=== PATIENT | female | born 1945 | race Caucasian/White ===

== ENCOUNTER → 2019-10-11 | Outpatient (CLI) | payer OTHER ==
[~2019-10-11] MED LIST: ADULT LOW DOSE81 MG PO; CIDATRINE500 MG; LIPITOR; LOPRESSOR 50 MG50 M1 PO; MOBIC
== END ==
LOC: SJCVC 13:33
PROVIDERS: ATTEND Internal Medicine
DX: I25.810 Atherosclerosis of coronary artery bypass graft(s) without angina pectoris (principal); I10 Essential (primary) hypertension; E78.2 Mixed hyperlipidemia; I65.23 Occlusion and stenosis of bilateral carotid arteries; C92.11 Chronic myeloid leukemia, BCR/ABL-positive, in remission; E78.00 Pure hypercholesterolemia, unspecified; Z95.1 Presence of aortocoronary bypass graft; Z79.82 Long term (current) use of aspirin; Z79.899 Other long term (current) drug therapy

== ENCOUNTER 2019-11-05 14:11 | Inpatient (IN) | payer OTHER ==
[~2019-11-05] VITALS: Ht 147.3 cm; Wt 38.1 kg
[~2019-11-05 14:11] MED LIST changes: -LOPRESSOR 50 MG50 M1 PO; +LOPRESSOR50 PO; +MACROBID 100 M100 MG PO
[2019-11-05 14:18] VITALS: BP 187/92
[2019-11-05] MEDS ORDERED: SIMVASTATIN80 MG PO (15:01)
[2019-11-05] MEDS ORDERED: TYLENOL EXTRA500 MG PO (15:04)
[2019-11-05] MEDS ORDERED: ALPRAZOLAM 0.50.5 M1 PO (15:10)
[2019-11-05 16:44] LABS: HEMATOCRIT 33.4 % (37.0-47.0); HEMOGLOBIN 11.3 gm/dL (12.0-15.0); MCH 30.9 pg (26.0-34.0); MCHC 33.9 g/dL (28.0-37.0); MCV 91.1 fL (80.0-100.0); RBC 3.66 mil/uL (4.20-5.00); RDW 13.5 % (10.5-14.5); WBC 8.6 thou/uL (4.0-11.0)
[2019-11-05 16:51] LABS: CALCIUM 10.6 mg/dL (8.5-10.1); CREATININE 1.1 mg/dL (0.6-1.0); POTASSIUM 3.4 mmol/L (3.5-5.1)
[2019-11-05 19:54] VITALS: BP 179/87
--- NOTE | 2019-11-05 21:01 | NUR ---
NO ANSWER ON 4S X 2. CHARGE NURSE CONTACTED HOUSE SUP TO [facility] NURSE CALL ER FOR REPORT
[2019-11-05] MEDS ORDERED: LORAZEPAM 0.50.5 MG PO (21:07)
[2019-11-05 23:00] VITALS: BP 161/124
[2019-11-06] VITALS: BP 150/77
[2019-11-06 04:00] VITALS: BP 160/84
--- NOTE | 2019-11-06 04:25 | NUR ---
PT AOX4. PT REPORTS STIFFNESS WITHOUT PAIN. PT RECEIVING PRN PO APAP Q4HR. PT NOTED TO BE ANXIOUS DUE TO REPORTS OF DISCOMFORT BEING IN THE HOSPITAL DURING COVID. PT RECEIVING PRN PO ATIVAN QHS. PT OBSERVED AMBULATING INDEPENDENTLY, GAIT STEADY WITH STANDBY ASSIST. PT TOLERATING PO INTAKE OF FLUIDS AND REGULAR DIET WITHOUT ISSUE. PT REPORTS DIFFICULTY FALLING ASLEEP. DIRECTOR OF STUDENT SERVICES PEPPER CUTTER NOTIFIED, EMAR UPDATED. PT RECEIVING PRN PO MELATONIN QHS WITH ONETIME DOSE OF PO ATIVAN. BRUISING AND SCAB NOTED TO LLE, SURROUNDING KNEE. SKIN INTACT OTHERWISE. PT REPORTS EAGERNESS TO GO HOME. PROVIDED REASSURANCE IN REGARDS TO PLAN OF CARE, PT RECEPTIVE. PT ORIENTED TO ROOM AND UNIT, ADMISSION FOLDER AT BEDSIDE. ENCOURAGED PT TO NOTIFY STAFF FOR ALL NEEDS. CALL LIGHT WITHIN REACH, BED ALARM ON, BED IN LOWEST POSITION. WILL CONTINUE TO MONITOR.
[2019-11-06 07:50] VITALS: BP 148/75
--- NOTE | 2019-11-06 10:25 | NUR ---
ASSUMMED PT CARE AT APPROXIMATELY 0930. PT A&O X4. ASSESSMENT CHARTED. PT COMFORTABLE IN BED. PT DENIES HAVING FURTHER CONCERNS. RECEIVED REPORT FROM RN. STATED UNDERSTANDING AND DENIED HAVING FURTHER QUESTIONS.
[2019-11-06 11:52] VITALS: BP 148/75
--- NOTE | 2019-11-06 11:55 | NUR ---
ASSUMMED PT CARE AT APPROXIMATELY 0930. PT A&O X4. ASSESSMENT CHARTED. FALL PRECAUTIONS IN PLACE. PT STATED SHE HAD A HEADACHE. PT RECEIVED ANALGESICS. PT STATED HEADACHE WAS RELIEVED. PT DISCHARGING HOME C SELF CARE. IV DC. VITAL SIGNS STABLE. PT RECEIVED DISCHARGE EDUCATION INCLUDING EDUCATION REINFORCING THAT THE PT'S C-COLLAR NEEDED TO STAY IN PLACE. PT AND PT'S SPOUSE STATED UNDERSTANDING AND DENIED HAVING FURTHER QUESTIONS. PT AMBULATES STEADY C STANDBY. PT COMFORTABLE IN BED. PT DENIES HAVING FURTHER CONCERNS.
== END 2019-11-06 12:31 | disposition home or self-care (01) | DRG 551 ==
LOC: ER 14:11 → EROBS 17:42 → 4S 17:42
PROVIDERS: Emergency Medicine; ADMIT Hospitalist; ATTEND Hospitalist
DX: S12.120A Other displaced dens fracture, initial encounter for closed fracture (principal); E43 Unspecified severe protein-calorie malnutrition; S22.32XA Fracture of one rib, left side, initial encounter for closed fracture; Z94.81 Bone marrow transplant status; W10.8XXA Fall (on) (from) other stairs and steps, initial encounter; I10 Essential (primary) hypertension; E78.00 Pure hypercholesterolemia, unspecified; F41.9 Anxiety disorder, unspecified; M81.0 Age-related osteoporosis without current pathological fracture; S80.02XA Contusion of left knee, initial encounter; Z85.6 Personal history of leukemia; Y93.89 Activity, other specified; Y92.89 Other specified places as the place of occurrence of the external cause; Y99.8 Other external cause status; Z95.1 Presence of aortocoronary bypass graft; Z79.899 Other long term (current) drug therapy; Z88.2 Allergy status to sulfonamides; Z79.82 Long term (current) use of aspirin
CPT/HCPCS: 10100

== ENCOUNTER → 2019-11-23 | Outpatient (CLI) | payer OTHER ==
[~2019-11-23] MED LIST changes: +ALPRAZOLAM 0.50.5 M1 PO; +LORAZEPAM 0.50.5 MG PO; +SIMVASTATIN80 MG PO; +TYLENOL EXTRA500 MG PO
== END ==
LOC: RAD 11:06
PROVIDERS: ATTEND Neurological Surgery
DX: S12.9XXD Fracture of neck, unspecified, subsequent encounter (principal); M47.812 Spondylosis without myelopathy or radiculopathy, cervical region; X58.XXXD Exposure to other specified factors, subsequent encounter

== ENCOUNTER → 2019-12-27 | Outpatient (CLI) | payer OTHER | LOC: CAT 09:51 | PROVIDERS: ATTEND Neurological Surgery | DX: S12.100G Unspecified displaced fracture of second cervical vertebra, subsequent encounter for fracture with delayed healing (principal); X58.XXXD Exposure to other specified factors, subsequent encounter ==

== ENCOUNTER → 2020-02-11 | Outpatient (CLI) | payer OTHER | LOC: CAT 13:05 | PROVIDERS: ATTEND Chiropractor | DX: S12.100A Unspecified displaced fracture of second cervical vertebra, initial encounter for closed fracture (principal); M50.221 Other cervical disc displacement at C4-C5 level; M25.78 Osteophyte, vertebrae; M48.02 Spinal stenosis, cervical region; X58.XXXA Exposure to other specified factors, initial encounter; Y93.89 Activity, other specified; Y92.89 Other specified places as the place of occurrence of the external cause; Y99.8 Other external cause status ==

== ENCOUNTER → 2020-07-17 | Outpatient (CLI) | payer OTHER | LOC: CAT 05-15 11:42 | PROVIDERS: ATTEND Neurological Surgery | DX: S12.100G Unspecified displaced fracture of second cervical vertebra, subsequent encounter for fracture with delayed healing (principal); X58.XXXA Exposure to other specified factors, initial encounter; Y93.89 Activity, other specified; Y92.89 Other specified places as the place of occurrence of the external cause; Y99.8 Other external cause status ==

== ENCOUNTER → 2021-04-03 | Outpatient (CLI) | payer OTHER | LOC: SJCVC 12:57 | PROVIDERS: ATTEND Internal Medicine | DX: I25.10 Atherosclerotic heart disease of native coronary artery without angina pectoris (principal); I10 Essential (primary) hypertension; E78.5 Hyperlipidemia, unspecified; I65.23 Occlusion and stenosis of bilateral carotid arteries; C92.10 Chronic myeloid leukemia, BCR/ABL-positive, not having achieved remission; E78.00 Pure hypercholesterolemia, unspecified; S12.100S Unspecified displaced fracture of second cervical vertebra, sequela; X58.XXXS Exposure to other specified factors, sequela; Z95.1 Presence of aortocoronary bypass graft; Z98.890 Other specified postprocedural states; Z79.82 Long term (current) use of aspirin; Z79.899 Other long term (current) drug therapy; Z72.89 Other problems related to lifestyle; Z88.1 Allergy status to other antibiotic agents; Z88.2 Allergy status to sulfonamides; Z88.8 Allergy status to other drugs, medicaments and biological substances ==